=== PATIENT | male | born 1995 | race African-American/Black ===

== ENCOUNTER 2017-07-30 22:49 | Emergency (ER) | payer OTHER | END 2017-07-31 01:55 | disposition home or self-care (01) | LOC: ER 22:49 | DX: S63.601A Unspecified sprain of right thumb, initial encounter (principal); S60.221A Contusion of right hand, initial encounter; Y08.89XA Assault by other specified means, initial encounter; Y93.89 Activity, other specified; Y92.89 Other specified places as the place of occurrence of the external cause; Y99.8 Other external cause status | CPT/HCPCS: 29125; 73110; 73130; 99284-25 ==